=== PATIENT | female | born 1975 | race Caucasian/White ===

== ENCOUNTER → 2018-05-26 | Outpatient (CLI) | payer OTHER | LOC: FIMAGING 13:49 | PROVIDERS: ATTEND Nurse Practitioner Women's Health | DX: N83.201 Unspecified ovarian cyst, right side (principal) ==

== ENCOUNTER → 2018-06-01 | Outpatient (CLI) | payer OTHER | LOC: FIMAGING 11:09 | PROVIDERS: ATTEND Nurse Practitioner Women's Health | DX: Z12.31 Encounter for screening mammogram for malignant neoplasm of breast (principal); Z80.3 Family history of malignant neoplasm of breast ==